=== PATIENT | female | born 1990 | race Caucasian/White ===

== ENCOUNTER 2017-08-05 23:48 | Emergency (ER) | payer MEDICAID ==
[~2017-08-05] VITALS: Ht 177.8 cm; Wt 156.8 kg
[~2017-08-05 23:48] MED LIST: IBU600 MG PO; NATURAL IRON65 MG PO; NORCO 325 MG-51 TA1 PO; PRENATAL FORMU1 EAC1 PO; PROZAC40 M1 PO; SENNA8.6 M2 PO
[2017-08-06 01:59] VITALS: BP 150/84
== END 2017-08-06 01:59 | disposition home or self-care (01) ==
LOC: ED 23:48
DX: R51 Headache (principal); R11.2 Nausea with vomiting, unspecified; R42 Dizziness and giddiness
CPT/HCPCS: J1885

== ENCOUNTER → 2017-10-11 | Outpatient (CLI) | payer MEDICAID | LOC: RAD 14:00 | DX: G93.5 Compression of brain (principal) | CPT/HCPCS: A9585 ==

== ENCOUNTER 2018-03-12 04:11 | Emergency (ER) | payer MEDICAID ==
[2018-03-12] MEDS ORDERED: TOPIRAMATE25 MG PO (04:36)
[2018-03-12] MEDS ORDERED: ELETRIPTAN HBR40 MG PO (04:36)
[2018-03-12] MEDS ORDERED: ERGOCALCIFER50000 IU PO (04:36)
[2018-03-12] MEDS ORDERED: CELEXA 20MG20 MG/TA1 PO (04:37)
[2018-03-12 05:25] LABS: EOS % 0.3 % (1.0-5.0); HEMATOCRIT 38.2 % (37.0-47.0); HEMOGLOBIN 12.3 g/dL (12.5-16.0); LYMPH# 2.3 (1.50-4.00); MEAN CELL VOLUME 88 fl (78-100); MEAN CORPUSCULAR HEMOGLOBIN 28 pg (27-31); MEAN CORPUSCULAR HGB CONC 32 g/dL (33-37); MEAN PLATELET VOLUME 11.4 fl (7.4-10.4); MONO # 0.3 (0.20-0.80); NEU # 6.8 (1.40-6.50); PLATELET COUNT 253 K/mm3 (130-400); RED BLOOD COUNT 4.34 M/mm3 (4.10-5.30); RED CELL DISTRIBUTION WIDTH 15.4 % (11.5-14.5); WHITE BLOOD COUNT 9.4 K/mm3 (4.8-10.8)
[2018-03-12 05:37] LABS: ALBUMIN 4.2 g/dL (3.5-5.0); ALCOHOL IN-HOUSE 237 mg/dL; ALT/SGPT 25 U/L (9-52); AST-SGOT 14 U/L (14-36); CALCIUM 8.5 mg/dL (8.4-10.2); CARBON DIOXIDE 20 mmol/L (22-30); GLUCOSE 100 mg/dL (65-105); POTASSIUM 3.4 mmol/L (3.6-5.0); SODIUM 146 mmol/L (137-145); TOTAL PROTEIN 7.9 g/dL (6.3-8.2)
[2018-03-12 05:44] LABS: TOTAL BILIRUBIN < 0.1 mg/dL (0.2-1.3)
[2018-03-12 05:54] LABS: URINE APPEARANCE CLEAR; URINE BILIRUBIN NEGATIVE (NEGATIVE); URINE BLOOD NEGATIVE (NEGATIVE); URINE COLOR YELLOW; URINE GLUCOSE NEGATIVE (NEGATIVE); URINE KETONE NEGATIVE (NEGATIVE); URINE LEUKOCYTE ESTERASE NEGATIVE (NEGATIVE); URINE NITRATE NEGATIVE (NEGATIVE); URINE PROTEIN(semi-quant) NEGATIVE (NEGATIVE); URINE UROBILINOGEN NORMAL (NORMAL); URINE WBC 0-1 /hpf (0-3)
[2018-03-12] MEDS ORDERED: ZOFRAN4 M2 PO (07:13)
[2018-03-12 08:11] VITALS: BP 151/79
== END 2018-03-12 07:40 | disposition home or self-care (01) ==
LOC: ED 04:11
PROVIDERS: Nurse Practitioner
DX: F10.129 Alcohol abuse with intoxication, unspecified (principal); F12.90 Cannabis use, unspecified, uncomplicated; Y90.7 Blood alcohol level of 200-239 mg/100 ml; F32.9 Major depressive disorder, single episode, unspecified; F17.210 Nicotine dependence, cigarettes, uncomplicated
CPT/HCPCS: J2405; J7030; L0172

== ENCOUNTER 2018-05-03 16:17 | Emergency (ER) | payer MEDICAID ==
[~2018-05-03] VITALS: Ht 177.8 cm; Wt 131.4 kg
[~2018-05-03 16:17] MED LIST changes: +CELEXA 20MG20 MG/TA1 PO; +ELETRIPTAN HBR40 MG PO; +ERGOCALCIFER50000 IU PO; +TOPIRAMATE25 MG PO; +ZOFRAN4 M2 PO
[2018-05-03] MEDS ORDERED: MAGNESIUM250 M1 PO (16:35)
[2018-05-03] MEDS ORDERED: MELATONIN10 M2 PO (16:35)
[2018-05-03] MEDS ORDERED: ADVIL 200MG TA200 MG PO (16:36)
[2018-05-03 17:30] LABS: HEMATOCRIT 38.6 % (37.0-47.0); HEMOGLOBIN 12.3 g/dL (12.5-16.0); MEAN CELL VOLUME 89 fl (78-100); MEAN CORPUSCULAR HEMOGLOBIN 28 pg (27-31); MEAN CORPUSCULAR HGB CONC 32 g/dL (33-37); MEAN PLATELET VOLUME 10.5 fl (7.4-10.4); PLATELET COUNT 315 K/mm3 (130-400); RED BLOOD COUNT 4.35 M/mm3 (4.10-5.30); WHITE BLOOD COUNT 16.9 K/mm3 (4.8-10.8)
[2018-05-03 17:39] LABS: ALBUMIN 3.8 g/dL (3.5-5.0); BUN/CREATININE RATIO 16.9 (6.0-26.0); CALCIUM 8.6 mg/dL (8.4-10.2); POTASSIUM 4.3 mmol/L (3.6-5.0); TOTAL PROTEIN 8.1 g/dL (6.3-8.2)
[2018-05-03 18:18] LABS: LYMPHOCYTE 11 % (20-51); NEUTROPHILS 86 % (42-75)
[2018-05-03 18:19] LABS: MONOCYTE 3 % (3-10)
[2018-05-03 18:44] LABS: URINE APPEARANCE CLOUDY; URINE BILIRUBIN NEGATIVE (NEGATIVE); URINE COLOR YELLOW; URINE GLUCOSE NEGATIVE (NEGATIVE); URINE KETONE NEGATIVE (NEGATIVE); URINE PROTEIN(semi-quant) 2+ mg/dL (NEGATIVE); URINE UROBILINOGEN NORMAL (NORMAL)
[2018-05-03 18:45] LABS: URINE BLOOD 250 ery/uL (NEGATIVE); URINE LEUKOCYTE ESTERASE 2+ (NEGATIVE); URINE NITRATE POSITIVE (NEGATIVE); URINE WBC >50 /hpf (0-3)
[2018-05-03] MEDS ORDERED: CIPRO 500MG TA500 MG PO (19:12)
[2018-05-03] MEDS ORDERED: ZOFRAN ODT8 M1 PO (19:13)
[2018-05-03 20:00] VITALS: BP 132/69
== END 2018-05-03 20:00 | disposition home or self-care (01) ==
LOC: ED 16:17
PROVIDERS: Nurse Practitioner Family
DX: N12 Tubulo-interstitial nephritis, not specified as acute or chronic (principal); F17.210 Nicotine dependence, cigarettes, uncomplicated
CPT/HCPCS: J0696; J1885; J2405; J7030